=== PATIENT | male | born 1985 | race African-American/Black ===

== ENCOUNTER 2016-11-06 15:23 | Emergency (ER) | payer OTHER ==
[2016-11-06 15:40] VITALS: BP 132/82; PULSE 98; TEMP 97.4; BMI 53.1
[2016-11-06 16:03] LABS: BASOPHIL 0.7 % (0-2.0); MCH 28.4 pg (25.7-33.7); MCHC 33.2 g/dl (32.0-35.9); MEAN CELL VOLUME 85.5 fl (80-96); MEAN PLT VOLUME 8.6 fl (7.5-11.1); NEUTROPHILS 72.4 % (42.8-82.8); PLATELET COUNT 282 K/MM3 (134-434); RDW 14.5 % (11.9-15.9); WHITE BLOOD COUNT 7.5 K/mm3 (4.0-10.0)
[2016-11-06 16:34] LABS: ALBUMIN 3.5 g/dl (3.4-5.0); ANION GAP 9 (8-16); BILIRUBIN,TOTAL 0.3 mg/dL (0.2-1.0); CALCIUM 8.3 mg/dL (8.5-10.1); CO2 27 mmol/L (21-32); CREATININE 0.9 mg/dL (0.7-1.3); GLUCOSE,RANDOM 105 mg/dL (74-106); SGOT/AST 68 U/L (15-37); SGPT/ALT 63 U/L (12-78); TOT PROT 7.1 g/dl (6.4-8.2)
[2016-11-06 16:36] LABS: ALK PHOS 100 U/L (45-117); TROPONIN I < 0.02 ng/ml (0.00-0.05)
--- NOTE | 2016-11-06 16:41 | PDOC ---
[id number] [id number] CHEST PAIN Time Seen by Provider: 11/06/16 15:50 - History of Present Illness Initial Comments: 11/06/16 16:40 CHIEF COMPLAINT: chest pain HISTORY OF PRESENT ILLNESS: 30 yo M with hx of asthma, psych disorders presents to ED with chest pain since 1 pm. Patient states he was "at his program at [facility]" when he felt chest pain. While he was on the bus going home he felt better, but when he arrived at home he felt the pain again with nausea and sweating. The pain is to the right side of his chest and does not radiate to his arms or his jaws. He describes that pain is "sharp" and he feels it when he takes a deep breath. No recent travel or sick contacts. PAST MEDICAL HISTORY: asthma, psych FAMILY HISTORY: Denies SOCIAL HISTORY: Denies tobacco, alcohol, illicit drug use. SURGICAL HISTORY: Denies ALLERGIES: No known drug allergies MEDS: Seroquel, Benadryl, Ability REVIEW OF SYSTEMS General/Constitutional: Denies fever or chills. Denies weakness, weight change. HEENT: Denies change in vision. Denies ear pain or discharge. Denies sore throat. Cardiovascular: Denies chest pain or shortness of breath. Respiratory: Denies cough, wheezing, or hemoptysis. Gastrointestinal: Denies nausea, vomiting, diarrhea or constipation. Denies rectal bleeding. Genitourinary: Denies dysuria, frequency, or change in urination. Musculoskeletal: Denies joint or muscle swelling or pain. Denies neck or back pain. Skin and breasts: Denies rash or easy bruising. Neurologic: Denies headache, vertigo, loss of consciousness, or loss of sensation. Psychiatric: Hx of psych disorders. PHYSICAL EXAM General Appearance: Well-appearing, appropriately dressed. No apparent distress , no intoxication. HEENT: EOMI, PERRLA, normal ENT inspection, normal voice, TMs normal, pharynx normal. No conjunctival pallor. No photophobia, scleral icterus. Neck: Supple. Trachea midline. No tenderness, rigidity, carotid bruit, stridor , lymphadenopathy, or thyromegaly. Respiratory/Chest: Reproducible chest pain to right pectoral muscle. Lungs CTAB. No shortness of breath, chest tenderness, respiratory distress, accessory muscle use. No crackles, rales, rhonchi, stridor, wheezing, dullness Cardiovascular: RRR. S1, S2. No JVD, murmur, bradycardia, tachycardia. Vascular Pulses: Dorsalis-Pedis (R): 2+, Dorsalis-Pedis (L): 2+ Gastrointestinal/Abdominal: Normal bowel sounds. Abdomen soft, non-distended. No tenderness or rebound tenderness. No organomegaly, pulsatile mass, guarding , hernia, hepatomegaly, splenomegaly. Lymphatic: No adenopathy, tenderness. Musculoskeletal/Extremities: Normal inspection. FROM of all extremities, normal capillary refill. Pelvis Stable. No CVA tenderness. No tenderness to extremities, pedal edema, swelling, erythema or deformity. Integumentary: Appropriate color, dry, warm. No cyanosis, erythema, jaundice or rash Neurologic: neonatal social worker II-XII intact. Fully oriented, alert. Appropriate mood/affect. Motor strength 5/5. No appreciable EOM palsy, facial droop or sensory deficit. 11/06/16 16:41 Past History - Past Medical History Allergies/Adverse Reactions: Allergies Allergy/AdvReac Type Severity Reaction Status Date / Time No Known Allergies Allergy Verified 11/06/16 15:40 Home Medications: Ambulatory Orders NK [No Known Home Medication] 11/06/16 Cardiac Disorders: Yes Psychiatric Problems: Yes - Immunization History Immunization Up to Date: Yes - Psycho/Social/Smoking Cessation Hx Anxiety: Yes Suicidal Ideation: No Smoking History: Never smoked Have you smoked in the past 12 months: No Information on smoking cessation initiated: No Hx Alcohol Use: No Drug/Substance Use Hx: No *Physical Exam - Vital Signs Last Vital Signs Temp Pulse Resp BP Pulse Ox 97.4 F L 98 H 20 132/82 99 11/06/16 15:28 11/06/16 15:28 11/06/16 15:28 11/06/16 15:28 11/06/16 15:36 ED Treatment Course - LABORATORY CBC & Chemistry Diagram: 11/06/16 15:43 11/06/16 15:43 - ADDITIONAL ORDERS Additional order review: 11/06/16 15:43 RBC 4.62 MCV 85.5 MCHC 33.2 RDW 14.5 MPV 8.6 Neutrophils % 72.4 Lymphocytes % 17.8 Monocytes % 7.1 Eosinophils % 2.0 Basophils % 0.7 - Medications Given in the ED: ED Medications Discontinued Medications Generic Name Dose Route Start Last Admin Trade Name Heladio PRN Reason Stop Dose Admin Ibuprofen 800 mg 11/06/16 16:47 11/06/16 17:22 Motrin - PO 11/06/16 16:48 800 mg ONCE ONE Administration Medical Decision Making - Medical Decision Making 11/06/16 16:46 30 yo M with hx of asthma and psych disorder presents to ED with chest pain x 3 hours. -CBC, CMP, cardiac profile -EKG Trop negative. Clinical presentation consistent with musculoskeletal chest pain. Advised patient to take medications as prescribed and f/u with PMD, advised patient of signs and symptoms for return to ER. Patient verbalized understanding and agrees to plan. *DC/Admit/Observation/Transfer Diagnosis at time of Disposition: Musculoskeletal chest pain - Discharge Dispostion Disposition: [facility] Condition at time of disposition: Stable Admit: No - Referrals Referrals: Thelma Jiang MD [Primary Care Provider] - - Patient Instructions Printed Discharge Instructions: DI for Chest Pain Additional Instructions: Please follow up with your primary care doctor. If you experience any chest pain accompanied by palpitations, shortness of breath, weakness, or fatigue, or develop fever, chills, nausea, vomiting, diarrhea or any new or worsening symptoms, please return to the ER.
[2016-11-06] MEDS ORDERED: IBUPROFEN 400 MG TABLET (FP) PO ONE ×2 (16:47→17:23)
--- NOTE | 2016-11-07 17:33 | EKG ---
Test Reason : Blood Pressure : / mmHG Vent. Rate : 090 BPM Atrial Rate : 090 BPM P-R Int : 152 ms QRS Dur : 092 ms QT Int : 370 ms P-R-T Axes : 045 024 026 degrees QTc Int : 452 ms NORMAL SINUS RHYTHM NORMAL ECG NO PREVIOUS ECGS AVAILABLE Confirmed by FABIO MARX MD ([id number]) on 11/07/2016 5:32:33 PM Referred By: Confirmed By:FABIO MARX MD
== END 2016-11-06 18:39 ==
LOC: JER 15:23
DX: M79.1 Myalgia (principal); J45.909 Unspecified asthma, uncomplicated; F99 Mental disorder, not otherwise specified
CPT/HCPCS: 36415; 80053; 82550; 82553; 84484; 85025; 93005; 93010; 99284-25